=== PATIENT | female | born 1980 | race Two or more races ===

== ENCOUNTER 2016-12-28 14:43 | Emergency (ER) | payer OTHER ==
[~2016-12-28] VITALS: Ht 160 cm; Wt 59.0 kg
[2016-12-28] MEDS ORDERED: NKM (15:03)
--- NOTE | 2016-12-28 15:14 | Emergency Room Report ---
History of Present Illness General Chief Complaint: Pain Source: Patient Present Illness HPI 36 YO female presents to the ED C/O 11/19 in severity generalized body aches, chills, 5/10 dull BIRCH since yesterday. Pt. states she has had several "hot flashes" pt. states she is UTD with vaccinations and is otherwise healthy. denies dysuria, hematuria, frequency, abdominal pain, , or rashes. Denies neck pain or stiffness. pt. reports nausea denies vomiting. denies recent travel or ill contacts. Denies CP, Palpitations, LOC, AMS, dizziness, Changes in Vision, Sensation, paresthesias, or a sudden severe headache. Allergies: Coded Allergies: No Known Allergies (Unverified , 12/28/16) Patient History Past Medical History: see triage record Past Surgical History: none Pertinent Family History: none Last Menstrual Period: Current Now: No Reviewed Nursing Documentation: PMH: Agreed, PSxH: Agreed Nursing Documentation-PMH Past Medical History: No Stated History Review of Systems All Other Systems: negative except mentioned in HPI Physical Exam Vital Signs Date Time Temp Pulse Resp B/P (MAP) Pulse Ox O2 Delivery O2 Flow Rate FiO2 12/28/16 14:57 99.1 99 16 104/66 97 Room Air Sp02 EP Interpretation: reviewed, normal General Appearance: no apparent distress, alert, GCS 15, non-toxic Head: normocephalic, atraumatic Eyes: bilateral eye normal inspection, bilateral eye PERRL ENT: hearing grossly normal, normal pharynx, normal voice, TMs + canals normal , uvula midline, moist mucus membranes Neck: full range of motion, no meningismus Respiratory: chest non-tender, lungs clear, normal breath sounds, no rhonchi, no wheezing, speaking full sentences Cardiovascular #1: regular rate, rhythm, normal capillary refill Gastrointestinal: normal bowel sounds, non tender, soft, no guarding Rectal: deferred Genitourinary: normal inspection, no CVA tenderness Musculoskeletal: back normal, gait/station normal, normal range of motion, non- tender Neurologic: alert, oriented x3, responsive, motor strength/tone normal, sensory intact, normal gait, speech normal Psychiatric: judgement/insight normal, memory normal, mood/affect normal Skin: normal color, no rash, warm/dry, well hydrated Lymphatic: other - anterior cervical and sub parotid LAD bilaterally Medical Decision Making PA Attestation Dr. Molina is my supervising Physician whom patient management has been discussed with. Diagnostic Impression: Primary Impression: Viral syndrome ER Course 36 YO female presents to the ED C/O 11/19 in severity generalized body aches, chills, 5/10 dull BIRCH since yesterday. Pt. states she has had several "hot flashes" pt. states she is UTD with vaccinations and is otherwise healthy. denies dysuria, hematuria, frequency, abdominal pain, , or rashes. Denies neck pain or stiffness. pt. reports nausea denies vomiting. denies recent travel or ill contacts. Denies CP, Palpitations, LOC, AMS, dizziness, Changes in Vision, Sensation, paresthesias, or a sudden severe headache. Ddx considered but are not limited to URI, pneumonia, PE, strep pharyngitis, meningitis, UTI, just to name a few. Vital signs: Pt. is afebrile, the remaining VS are WNL H&PE are most consistent with URI- no meningeal signs, oropharynx is not involved, no evidence of bacterial infection at this time. ORDERS: -UA: Unremarkable -Urine Hcg: negative ED INTERVENTIONS: None required at this time. -Tylenol PO -Zofran PO -Toradol IM --PT. EDUCATION: Discussed antibiotic resistance with inappropriate prescribing of antibiotics for viral illnesses. Discussed signs and symptoms to indicate viral illness versus bacterial illness. DISCHARGE: At this time pt. is stable for d/c to home. Will provide printed patient care instructions, and any necessary prescriptions. Care plan and follow up instructions have been discussed with the patient prior to discharge. Labs Test 12/28/16 15:19 Urine Color Yellow Urine Appearance Clear Urine pH 5 (4.5-8.0) Urine Specific [place] 1.020 (1.005-1.035) Urine Protein 1+ (NEGATIVE) Urine Glucose (UA) Negative (NEGATIVE) Urine Ketones 3+ (NEGATIVE) Urine Occult Blood 5+ (NEGATIVE) Urine Nitrite Negative (NEGATIVE) Urine Bilirubin Negative (NEGATIVE) Urine Urobilinogen Normal MG/DL (0.0-1.0) Urine Leukocyte Esterase 1+ (NEGATIVE) Urine RBC 10-15 /HPF (0 - 2) Urine WBC 2-4 /HPF (0 - 2) Urine Squamous Epithelial Cells Few /LPF (NONE/OCC) Urine Bacteria Few /HPF (NONE) Urine Mucus Few /LPF (NONE/OCC) Urine HCG, Qualitative Negative Last Vital Signs Date Time Temp Pulse Resp B/P (MAP) Pulse Ox O2 Delivery O2 Flow Rate FiO2 12/28/16 14:57 99.1 99 16 104/66 97 Room Air Disposition: HOME, SELF-CARE Condition: Stable Scripts Ibuprofen* (MOTRIN*) 400 Mg Tablet 400 MG ORAL THREE TIMES A DAY, #30 TAB 0 Refills Prov: Deidra Joel 12/28/16 Metoclopramide Hcl* (REGLAN*) 10 Mg Tablet 10 MG ORAL THREE TIMES A DAY for 3 Days, #10 TAB Prov: Deidra Joel 12/28/16 Acetaminophen* (TYLENOL EXTRA STRENGTH*) 500 Mg Tablet 500 MG ORAL Q6H Y for Mild Pain/Temp > 100.5, #20 TAB 0 Refills Prov: Deidra Joel 12/28/16 Departure Forms: Return to Work Return to Work Date: Jan 01, 2017 Work Restrictions: None Return to Full Activity: Jan 01, 2017 Patient Instructions: Influenza, Adult, [id number], Muscle Pain, Adult Additional Instructions: Take medications as directed. Follow up with a Primary Care Provider in 3-5 days, even if your symptoms have resolved. --Please review list of primary care clinics, if you do not already have a primary care provider Return sooner to ED if new symptoms occur, or current symptoms become worse. - Please note that this Emergency Department Report was dictated using [employer] rider technology software, occasionally this can lead to erroneous entry secondary to interpretation by the dictation equipment. Deidra Joel Dec 28, 2016 15:14
[2016-12-28 15:58] LABS: APPEARANCE,URINE CLEAR; KETONES,URINE 3+ (NEGATIVE); LEUKOCYTE ESTERASE ,URINE 1+ (NEGATIVE); NITRITE,URINE NEGATIVE (NEGATIVE); PH,URINE 5 (4.5-8.0); PROTEIN,URINE 1+ (NEGATIVE); UROBILINOGEN,URINE NORMAL MG/DL (0.0-1.0)
[2016-12-28 16:10] LABS: BACTERIA,URINE FEW /HPF; MUCUS,URINE FEW /LPF (NONE/OCC); SQUAMOUS EPITHELIAL CELL,UR FEW /LPF (NONE/OCC)
[2016-12-28] MEDS ORDERED: REGLAN10 MG ORAL (16:13)
[2016-12-28] MEDS ORDERED: TYLENOL EXTRA500 MG ORAL (16:13)
[2016-12-28] MEDS ORDERED: IBUPROFEN400 MG ORAL (16:14)
[2016-12-28] MEDS ORDERED: Ketorolac 60mg Inj IM ONE (16:15)
[2016-12-28 16:34] VITALS: BP 108/68
[2016-12-28 16:35] VITALS: BP 108/68
== END 2016-12-28 16:36 | disposition home or self-care (01) ==
LOC: EMR 16:02
DX: B34.9 Viral infection, unspecified (principal)
CPT/HCPCS: 81003; 81025; 96372; 99284

== ENCOUNTER 2017-08-13 09:04 | Emergency (ER) | payer OTHER ==
[~2017-08-13] VITALS: Ht 157.5 cm; Wt 59.0 kg
[~2017-08-13 09:04] MED LIST: IBUPROFEN400 MG ORAL; NKM; REGLAN10 MG ORAL; TYLENOL EXTRA500 MG ORAL
[2017-08-13 09:23] VITALS: BP 118/76
[2017-08-13] MEDS ORDERED: BACTRIM DS TAB1 EAC1 ORAL (10:12)
[2017-08-13] MEDS ORDERED: CEPHALEXIN500 MG ORAL (10:12)
[2017-08-13] MEDS ORDERED: IBUPROFEN600 MG ORAL (10:12)
[2017-08-13 10:24] VITALS: BP 121/78
--- NOTE | 2017-08-13 14:30 | Emergency Room Report ---
History of Present Illness General Chief Complaint: Skin Rash/Abscess Source: Patient Present Illness HPI Patient presents emergency department today complaining of right great toe pain and swelling. Patient states that she got a pedicure in her right toe begins to get red and swollen. He has been getting worse over last few days and pus was expressed from appear she states that the swelling has decreased but still red. She came in for further evaluation. Denies any other complaints.No other modifying factors. No other associated signs and symptoms. No other complaints were noted. Allergies: Coded Allergies: No Known Allergies (Unverified , 12/28/16) Patient History Past Medical History: none Past Surgical History: none Pertinent Family History: none Social History: Denies: smoking, alcohol use, drug use Last Menstrual Period: last week Now: No Reviewed Nursing Documentation: PMH: Agreed; PSxH: Agreed Nursing Documentation-PMH Past Medical History: No Stated History Review of Systems All Other Systems: negative except mentioned in HPI Physical Exam Vital Signs Date Time Temp Pulse Resp B/P (MAP) Pulse Ox O2 Delivery O2 Flow Rate FiO2 08/13/17 09:09 98.0 86 17 118/76 98 Room Air 98.1 Sp02 EP Interpretation: reviewed, normal General Appearance: normal inspection, well appearing, no apparent distress, alert Head: atraumatic Eyes: bilateral eye normal inspection ENT: hearing grossly normal, normal voice Neck: normal inspection, supple Respiratory: normal breath sounds Cardiovascular #1: regular rate, rhythm, no edema Gastrointestinal: normal inspection, normal bowel sounds, non tender, soft, no guarding, no hernia Genitourinary: no CVA tenderness Musculoskeletal: back normal, swelling - Right great toe pain and redness. Neurologic: normal inspection, alert, responsive, speech normal Psychiatric: anxious Skin: other - Redness right Great toe Medical Decision Making Diagnostic Impression: Primary Impression: Paronychia ER Course Patient presents emergency department today complaint right great toe pain and redness. Difficult considerations include abscess, paronychia, ingrown nail. Patient's exam is consistent with paronychia that has been drained already. However the area is still red and inflamed. I feel the patient would benefit from antibiotics. Patient was started on Keflex and Bactrim as an outpatient.Patient is advised to follow up with primary doctor in 2-3 days and return the emergency room for any worsening symptoms and as needed. Last Vital Signs Date Time Temp Pulse Resp B/P (MAP) Pulse Ox O2 Delivery O2 Flow Rate FiO2 08/13/17 10:24 98.1 78 18 121/78 98 Room Air 98.1 Status: improved Disposition: HOME, SELF-CARE Condition: Stable Scripts Ibuprofen* (MOTRIN*) 600 Mg Tablet 600 MG ORAL Q8H PRN for For Pain, #15 TAB 0 Refills Prov: JOAO SIMEON M.D. 08/13/17 Trimethoprim/Sulfamethoxazole 160/800* (BACTRIM DS TABLET*) 1 Each Tablet 1 TAB ORAL Q12H, #14 TAB 0 Refills Prov: JOAO SIMEON M.D. 08/13/17 Cephalexin* (KEFLEX*) 500 Mg Capsule 500 MG ORAL EVERY 6 HOURS for 7 Days, CAP Prov: JOAO SIMEON M.D. 08/13/17 Referrals: [facility],REFERRING (PCP) Patient Instructions: Desmond [id number] JOAO SIMEON M.D. August 13, 2017 14:30
== END 2017-08-13 10:28 | disposition home or self-care (01) ==
LOC: EMR 10:15
DX: L03.031 Cellulitis of right toe (principal)
CPT/HCPCS: 99284

== ENCOUNTER 2017-09-17 23:07 | Emergency (ER) | payer OTHER ==
[~2017-09-17] VITALS: Ht 154.9 cm; Wt 59.0 kg
[~2017-09-17 23:07] MED LIST changes: +BACTRIM DS TAB1 EAC1 ORAL; +CEPHALEXIN500 MG ORAL; +IBUPROFEN600 MG ORAL
[2017-09-17 23:25] VITALS: BP 121/82
[2017-09-17] MEDS ORDERED: IBUPROFEN600 MG ORAL (23:29)
[2017-09-17] MEDS ORDERED: ROBITUSSIN COU118 M1 PO (23:29)
[2017-09-17] MEDS ORDERED: ZYRTEC10 MG ORAL (23:29)
[2017-09-17] MEDS ORDERED: AUGMENTIN 875-1 EAC1 ORAL (23:29)
[2017-09-17 23:40] VITALS: BP 121/82
--- NOTE | 2017-09-19 01:42 | Emergency Room Report ---
History of Present Illness General Chief Complaint: Flu Like Symptoms Source: Patient Present Illness HPI Patient present with complaints of sore throat mild body ache Also cough and congestion Patient has pressure in both sinuses Denies any chest pain or shortness of breath Denies any back or flank pain denies any posterior neck pain or photophobia denies any dysuria or frequency denies any recent travel Allergies: Coded Allergies: No Known Allergies (Unverified , 12/28/16) Patient History Past Medical History: see triage record Pertinent Family History: none Last Menstrual Period: Last Week Reviewed Nursing Documentation: PMH: Agreed; PSxH: Agreed Nursing Documentation-PMH Past Medical History: No Stated History Review of Systems All Other Systems: negative except mentioned in HPI Physical Exam Vital Signs Date Time Temp Pulse Resp B/P (MAP) Pulse Ox O2 Delivery O2 Flow Rate FiO2 09/17/17 23:11 98.0 90 18 117/83 98 Room Air 98.1 Sp02 EP Interpretation: reviewed, normal General Appearance: well appearing, no apparent distress Head: normocephalic, atraumatic Eyes: bilateral eye PERRL, bilateral eye EOMI ENT: hearing grossly normal, TMs + canals normal, uvula midline, pharyngeal erythema Neck: full range of motion, supple, no meningismus, no bony tend Respiratory: lungs clear, normal breath sounds, no rhonchi, no respiratory distress, no retraction, no accessory muscle use Cardiovascular #1: normal peripheral pulses, regular rate, rhythm, no edema, no gallop, no JVD, no murmur Gastrointestinal: normal bowel sounds, non tender, soft, no mass, no organomegaly, non-distended, no guarding, no hernia, no pulsatile mass, no rebound Genitourinary: no CVA tenderness Musculoskeletal: normal inspection Neurologic: oriented x3, responsive, bakery chef III-XII nml as tested, motor strength/ tone normal, sensory intact Psychiatric: mood/affect normal Skin: normal color, no rash, warm/dry, palpation normal Lymphatic: normal inspection, no adenopathy Medical Decision Making Diagnostic Impression: Primary Impression: pharyngitis ER Course Patient finds are consistent with pharyngitis does not appear septic or toxic Consideration for meningitis and other infectious pathology is made However patient is appropriate for close outpatient follow-up given the examination and evaluation Last Vital Signs Date Time Temp Pulse Resp B/P (MAP) Pulse Ox O2 Delivery O2 Flow Rate FiO2 09/17/17 23:40 98.1 88 18 121/82 98 Room Air 98.1 Status: unchanged Disposition: HOME, SELF-CARE Condition: Stable Scripts Cetirizine Hcl* (ZYRTEC*) 10 Mg Tablet 10 MG ORAL DAILY, #20 TAB 0 Refills Prov: Kervin Deleon DO 09/17/17 Ibuprofen* (MOTRIN*) 600 Mg Tablet 600 MG ORAL Q8H PRN for For Pain, #20 TAB 0 Refills Prov: Kervin Deleon DO 09/17/17 Guaifenesin/D-Methorphan Hb/Pe (ROBITUSSIN COUGH-COLD CF LIQ) 118 Ml Liquid 10 ML PO QHS for 7 Days, ML Prov: Kervin Deleon DO 09/17/17 Amoxicillin/Potassium Clav 875-125* (AUGMENTIN 875-125 TABLET*) 1 Each Tablet 1 TAB ORAL TWICE A DAY, #14 TAB Prov: Kervin Deleon DO 09/17/17 Referrals: [facility],REFERRING (PCP) Patient Instructions: Pharyngitis, [id number] Additional Instructions: Patient is provided with the discharge instructions notified to follow up with primary doctor in the next 2-3 days otherwise return to the er with any worsening symptoms. Please note that this report is being documented using [employer] technology. This can lead to erroneous entry secondary to incorrect interpretation by the dictating instrument. Kervin Deleon DO Sep 19, 2017 01:42
== END 2017-09-17 23:40 | disposition home or self-care (01) ==
LOC: EMR 23:31
DX: J02.9 Acute pharyngitis, unspecified (principal)
CPT/HCPCS: 99284

== ENCOUNTER 2018-02-21 07:50 | Emergency (ER) | payer OTHER ==
[~2018-02-21] VITALS: Ht 157.5 cm; Wt 54.4 kg
[~2018-02-21 07:50] MED LIST changes: +AUGMENTIN 875-1 EAC1 ORAL; +ROBITUSSIN COU118 M1 PO; +ZYRTEC10 MG ORAL
[2018-02-21 08:03] VITALS: BP 111/69
[2018-02-21] MEDS ORDERED: Mylanta II UD 30ml ORAL ONE (08:30)
[2018-02-21] MEDS ORDERED: Lidocaine 2% Visc 15ml soln ORAL ONE (08:30)
[2018-02-21] MEDS ORDERED: Dicyclomine HCl 10mg/5ml oral soln ORAL ONE (08:30)
[2018-02-21 08:48] LABS: BASOPHILS % (AUTO) 0.7 % (0.0-2.0); EOSINOPHILS % (AUTO) 0.7 % (0.0-3.0); HEMATOCRIT 39.4 % (37.0-47.0); HEMOGLOBIN 13.5 G/DL (12.0-16.0); LYMPHOCYTES % (AUTO) 21.4 % (20.0-45.0); MEAN CORPUSCULAR VOLUME 87 FL (80-99); MONOCYTES % (AUTO) 5.1 % (1.0-10.0); NEUTROPHILS % (AUTO) 72.1 % (45.0-75.0); PLATELET COUNT 155 K/UL (150-450); RED BLOOD COUNT 4.54 M/UL (4.20-5.40); RED CELL DISTRIBUTION WIDTH 11.1 % (11.6-14.8); WHITE BLOOD COUNT 5.9 K/UL (4.8-10.8)
[2018-02-21 08:56] LABS: ANION GAP 6 mmol/L (5-15); BLOOD UREA NITROGEN 16 mg/dL (7-18); CALCIUM 8.8 MG/DL (8.5-10.1); CARBON DIOXIDE 27 MMOL/L (21-32); CHLORIDE 103 MMOL/L (98-107); CREATININE 0.7 MG/DL (0.55-1.30); POTASSIUM 3.8 MMOL/L (3.5-5.1); SODIUM 136 MMOL/L (136-145)
[2018-02-21 09:00] LABS: ALANINE AMINOTRANSFERASE 20 U/L (12-78); ALBUMIN 3.9 G/DL (3.4-5.0); ALBUMIN/GLOBULIN RATIO 1.1 (1.0-2.7); ALKALINE PHOSPHATASE 40 U/L (46-116); ASPARTATE AMINO TRANSFERASE 13 U/L (15-37); BILIRUBIN,TOTAL 0.3 MG/DL (0.2-1.0)
[2018-02-21] MEDS ORDERED: Ketorolac 30mg Inj IV ONE (09:30)
[2018-02-21] MEDS ORDERED: Morphine Sulfate 4mg/ml Inj (IV/IM USE ONLY) IVP ONE (09:30)
[2018-02-21] MEDS ORDERED: Isovue-300 100ml vial INJ PRN (09:30)
[2018-02-21 09:38] LABS: APPEARANCE,URINE CLEAR; BILIRUBIN, URINE NEGATIVE (NEGATIVE); COLOR,URINE PALE YELLOW; GLUCOSE, URINE (UA) NEGATIVE (NEGATIVE); KETONES,URINE 3+ (NEGATIVE); LEUKOCYTE ESTERASE ,URINE NEGATIVE (NEGATIVE); NITRITE,URINE NEGATIVE (NEGATIVE); PH,URINE 6 (4.5-8.0); PROTEIN,URINE NEGATIVE (NEGATIVE); UROBILINOGEN,URINE NORMAL MG/DL (0.0-1.0)
[2018-02-21 10:00] VITALS: BP 102/61
--- NOTE | 2018-02-21 10:43 | Diagnostic Imaging Report ---
Clinical Indication: Abdominal pain Technique: No oral contrast utilized, per emergency room physician request IV administration nonionic contrast. Venous phase spiral acquisition obtained through the abdomen and pelvis. Multiplanar reconstructions were generated. Total dose length product 636.42 mGycm. CTDIvol(s) 13.01 mGy. Dose reduction achieved using automated exposure control Comparison: none Findings: Lack of enteric contrast limits assessment of the GI tract. The appendix is normal. There is no evidence of colonic diverticulosis or diverticulitis. No small bowel distention. No free or loculated intraperitoneal gas or fluid is evident. The distal esophagus, stomach, duodenum are unremarkable. The liver, gallbladder, bile ducts, pancreas, spleen, adrenals, kidneys are all unremarkable. No retroperitoneal or mesenteric mass or adenopathy. 2.3 cm presumed dominant follicle is seen in the left ovary. There are small bilateral paraovarian varicosities. The bladder is unremarkable. The included lung bases are clear. The bones are unremarkable Impression: Limited assessment of the GI tract, due to lack of enteric contrast administration No gross acute abnormality Small bilateral paraovarian varicosities. This could indicate ovarian vein reflux which can result in pelvic congestion syndrome. Correlate with clinical history and findings Otherwise unremarkable The CT scanner at [facility] is accredited by the [employer] and the scans are performed using protocols designed to limit radiation exposure to as low as reasonably achievable to attain images of sufficient resolution adequate for diagnostic evaluation.
[2018-02-21] MEDS ORDERED: ONDANSETRON ODT4 MG BC (11:07)
[2018-02-21] MEDS ORDERED: ACETAMINOPHEN-1 EAC1 ORAL (11:07)
[2018-02-21] MEDS ORDERED: DICYCLOMINE HCL10 MG PO (11:07)
[2018-02-21] MEDS ORDERED: RANITIDINE HCL150 MG ORAL (11:07)
[2018-02-21 11:15] VITALS: BP 115/70
--- NOTE | 2018-02-21 11:26 | Emergency Room Report ---
History of Present Illness General Chief Complaint: Abdominal Pain Source: Patient Present Illness HPI 37 yo F presents to ED c/o abd pain. started around 2am. started after eating late night food. pain is epigastric, burning 8/10 nonradiating. denies nausea/ vomiting. denies diarrhea. denies chest pain, SOB. denies fevers, chills. denies sick contacts or recent travel. no other aggravating or relieving factors. denies any other associated symptoms. Allergies: Coded Allergies: No Known Allergies (Unverified , 12/28/16) Patient History Past Medical History: none Past Surgical History: none Pertinent Family History: none Social History: Denies: smoking, alcohol use, drug use Last Menstrual Period: 02/20/18 Now: No Immunizations: UTD Reviewed Nursing Documentation: PMH: Agreed; PSxH: Agreed Nursing Documentation-PMH Past Medical History: No Stated History Review of Systems All Other Systems: negative except mentioned in HPI Physical Exam Vital Signs Date Time Temp Pulse Resp B/P (MAP) Pulse Ox O2 Delivery O2 Flow Rate FiO2 02/21/18 07:57 97.9 69 18 111/69 100 Room Air Sp02 EP Interpretation: reviewed, normal General Appearance: no apparent distress, alert, GCS 15, non-toxic Head: normocephalic, atraumatic Eyes: bilateral eye normal inspection, bilateral eye PERRL ENT: hearing grossly normal, normal pharynx, no angioedema, normal voice Neck: full range of motion, supple/symm/no masses Respiratory: chest non-tender, lungs clear, normal breath sounds, speaking full sentences Cardiovascular #1: regular rate, rhythm, no edema Cardiovascular #2: 2+ carotid (R), 2+ carotid (L), 2+ radial (R), 2+ radial (L) , 2+ dorsalis pedis (R), 2+ dorsalis pedis (L) Gastrointestinal: normal bowel sounds, soft, non-distended, no guarding, no rebound, tenderness Rectal: deferred Genitourinary: normal inspection, no CVA tenderness Musculoskeletal: back normal, gait/station normal, normal range of motion, non- tender Neurologic: alert, oriented x3, responsive, motor strength/tone normal, sensory intact, speech normal Psychiatric: judgement/insight normal, memory normal, mood/affect normal, no suicidal/homicidal ideation Reflexes: 3+ bicep (R), 3+ bicep (L), 3+ tricep (R), 3+ tricep (L), 3+ knee (R) , 3+ knee (L) Skin: normal color, no rash, warm/dry, well hydrated Lymphatic: no adenopathy Medical Decision Making Diagnostic Impression: Primary Impression: Acute gastritis Qualified Codes: K29.00 - Acute gastritis without bleeding ER Course Hospital Course 37-year-old F presents to ED with abdominal pain Differential diagnosis includes-appendicitis, cholecystitis, small bowel obstruction, gastritis, Clinical course Patient placed on stretcher. After initial history and physical I ordered labs , IV fluids, zofran, pepicid, GI cokctail Labs - no leukocytosis, electrolytes ok, LFTS ok She continues to have pain after medication. Morphine ordered. CT ordered. CT scan shows no acute pathology Discussed findings with patient. Safe for discharge close outpatient follow- up. Patient has a PMD. I feel this is a highly complex case requiring extensive working including EKG/ Rhythm strip, Xray/CT/US, Blood/urine lab work, repeat exams while in ED, and administration of strong opiates/narcotics for pain control, admission to hospital or close patient follow up. Diagnosis - gastritis Stable and discharged to home with Rx Zofran, zantac, bentyl, tylenol #3. Followup with PMD. Return to ED if symptoms recur or worsen Labs Test 02/21/18 08:00 02/21/18 08:30 02/21/18 09:19 Urine HCG, Qualitative Negative (NEGATIVE) White Blood Count 5.9 K/UL (4.8-10.8) Red Blood Count 4.54 M/UL (4.20-5.40) Hemoglobin 13.5 G/DL (12.0-16.0) Hematocrit 39.4 % (37.0-47.0) Mean Corpuscular Volume 87 FL (80-99) Mean Corpuscular Hemoglobin 29.9 PG (27.0-31.0) Mean Corpuscular Hemoglobin Concent 34.4 G/DL (32.0-36.0) Red Cell Distribution Width 11.1 % (11.6-14.8) Platelet Count 155 K/UL (150-450) Mean Platelet Volume 9.0 FL (6.5-10.1) Neutrophils (%) (Auto) 72.1 % (45.0-75.0) Lymphocytes (%) (Auto) 21.4 % (20.0-45.0) Monocytes (%) (Auto) 5.1 % (1.0-10.0) Eosinophils (%) (Auto) 0.7 % (0.0-3.0) Basophils (%) (Auto) 0.7 % (0.0-2.0) Sodium Level 136 MMOL/L (136-145) Potassium Level 3.8 MMOL/L (3.5-5.1) Chloride Level 103 MMOL/L (98-107) Carbon Dioxide Level 27 MMOL/L (21-32) Anion Gap 6 mmol/L (5-15) Blood Urea Nitrogen 16 mg/dL (7-18) Creatinine 0.7 MG/DL (0.55-1.30) Estimat Glomerular Filtration Rate > 60 mL/min (>60) Glucose Level 120 MG/DL (74-106) Calcium Level 8.8 MG/DL (8.5-10.1) Total Bilirubin 0.3 MG/DL (0.2-1.0) Aspartate Amino Transf (AST/SGOT) 13 U/L (15-37) Alanine Aminotransferase (ALT/SGPT) 20 U/L (12-78) Alkaline Phosphatase 40 U/L (46-116) Total Protein 7.5 G/DL (6.4-8.2) Albumin 3.9 G/DL (3.4-5.0) Globulin 3.6 g/dL Albumin/Globulin Ratio 1.1 (1.0-2.7) Lipase 97 U/L (73-393) Urine Color Pale yellow Urine Appearance Clear Urine pH 6 (4.5-8.0) Urine Specific [place] 1.020 (1.005-1.035) Urine Protein Negative (NEGATIVE) Urine Glucose (UA) Negative (NEGATIVE) Urine Ketones 3+ (NEGATIVE) Urine Blood 1+ (NEGATIVE) Urine Nitrite Negative (NEGATIVE) Urine Bilirubin Negative (NEGATIVE) Urine Urobilinogen Normal MG/DL (0.0-1.0) Urine Leukocyte Esterase Negative (NEGATIVE) Urine RBC 0-2 /HPF (0 - 2) Urine WBC 0 /HPF (0 - 2) Urine Squamous Epithelial Cells Occasional /LPF Urine Bacteria None /HPF (NONE) CT/MRI/US Diagnostic Results CT/MRI/US Diagnostic Results : Imaging Test Ordered: CT A/P Impression no acute process Last Vital Signs Date Time Temp Pulse Resp B/P (MAP) Pulse Ox O2 Delivery O2 Flow Rate FiO2 02/21/18 10:00 97.6 70 18 102/61 98 Room Air Status: improved Disposition: HOME, SELF-CARE Condition: Stable Scripts Acetaminophen With Codeine (T#3) (TYLENOL #3 TAB*) Y Tab 1 TAB ORAL Q8H PRN for For Pain, #20 TAB Prov: Paul Ortiz MD 02/21/18 Ranitidine Hcl* (ZANTAC*) 150 Mg Tablet 150 MG ORAL TWICE A DAY for 7 Days, TAB Prov: Paul Ortiz MD 02/21/18 Dicyclomine Hcl* (DICYCLOMINE HCL*) 10 Mg Capsule 10 MG PO QID for 5 Days, CAP Prov: Paul Ortiz MD 02/21/18 Ondansetron Odt* (ZOFRAN ODT*) 4 Mg Tab.rapdis 4 MG BC EVERY 6 HOURS PRN for Nausea & Vomiting, #10 TAB 0 Refills Prov: Paul Ortiz MD 02/21/18 Referrals: NON PHYSICIAN (PCP) HUBERT RAMSEY Patient Instructions: Gastritis, Adult, [id number] Paul Ortiz MD Feb 21, 2018 11:26
== END 2018-02-21 11:15 | disposition home or self-care (01) ==
LOC: EMR 08:10
DX: K29.00 Acute gastritis without bleeding (principal); I86.2 Pelvic varices
CPT/HCPCS: 36415; 74177; 80053; 81003; 81025; 83690; 85025; 96361; 96374; 96375; 99284; J1885; J2270; J2405; Q9967; S0028